=== PATIENT | male | born 1945 | race Caucasian/White ===

== ENCOUNTER 2021-10-30 18:11 | Inpatient (IN) | payer MEDICARE, OTHER ==
[~2021-10-30] VITALS: Ht 170.2 cm; Wt 64.0 kg
[2021-10-30 22:11] LABS: HEMOGLOBIN 10.8 gm/dl (14.0-17.5); RED BLOOD COUNT 3.21 M/UL (4.20-5.50); WHITE BLOOD COUNT 5.8 K/UL (4.5-11.0)
[2021-10-31] MEDS ORDERED: ZYLOPRIM100 MG PO (00:38)
[2021-10-31] MEDS ORDERED: ELIQUIS5 MG PO (00:38)
[2021-10-31] MEDS ORDERED: BACLOFEN10 MG PO (00:39)
[2021-10-31] MEDS ORDERED: LIPITOR40 MG PO (00:39)
[2021-10-31] MEDS ORDERED: TIKOSYN125 MCG PO (00:40)
[2021-10-31] MEDS ORDERED: BUMETANIDE1 MG PO ×2 (00:40→15:04)
[2021-10-31] MEDS ORDERED: VITAMIN D21250 MCG PO (00:41)
[2021-10-31] MEDS ORDERED: FOLIC ACID 1 MG1 MG PO (00:42)
[2021-10-31] MEDS ORDERED: IRON325 M1 PO (00:42)
[2021-10-31] MEDS ORDERED: PROSCAR5 MG PO (00:42)
[2021-10-31] MEDS ORDERED: ISOSORBIDE MONO30 MG PO (00:44)
[2021-10-31] MEDS ORDERED: SYNTHROID75 MCG PO (00:44)
[2021-10-31] MEDS ORDERED: LOPRESSOR50 MG PO (00:45)
[2021-10-31] MEDS ORDERED: ZOFRAN 4 MG TAB4 MG PO (00:46)
[2021-10-31] MEDS ORDERED: NITROSTAT 0.40.4 MG SL (00:46)
[2021-10-31] MEDS ORDERED: TERAZOSIN HCL5 MG PO (00:47)
[2021-10-31 04:13] LABS: HEMOGLOBIN 10.4 gm/dl (14.0-17.5); RED BLOOD COUNT 3.05 M/UL (4.20-5.50); WHITE BLOOD COUNT 5.6 K/UL (4.5-11.0)
[2021-10-31] MEDS ORDERED: CLARITIN10 MG PO (15:02)
[2021-10-31] MEDS ORDERED: PROTONIX20 MG PO (15:06)
[2021-10-31] MEDS ORDERED: DOCUSATE SODIU100 MG PO (15:07)
[2021-11-01 03:20] LABS: HEMOGLOBIN 10.4 gm/dl (14.0-17.5); RED BLOOD COUNT 3.13 M/UL (4.20-5.50); WHITE BLOOD COUNT 6.3 K/UL (4.5-11.0)
--- NOTE | 2021-11-01 13:00 | NUR ---
CALLED DR ZAVALA WITH CONSULT FROM DR RIVAS. POSSIBLE MDS. DR ZAVALA STATED HE WOULD SEE THE PATIENT ON WEDNESDAY.
--- NOTE | 2021-11-01 19:48 | NUR ---
PT REPORTS THAT HE FEELS DIZZY UPON PHYSICIAN VISIT. ORTHOSTATICS BPS DONE. LYING BP148/59 HR77 SITTING BP115/84 HR 84 STANDING BP115/60 HR 80. NOTIFIED MD OF RESULTS ORDERS OBTAINED.
--- NOTE | 2021-11-02 00:37 | NUR ---
NOTIFIED DR ESTEVEZ OF PTS CRITICAL LACTIC ACID.
[2021-11-02 06:00] LABS: HEMOGLOBIN 10.2 gm/dl (14.0-17.5); RED BLOOD COUNT 3.07 M/UL (4.20-5.50); WHITE BLOOD COUNT 6.7 K/UL (4.5-11.0)
[2021-11-02 12:09] LABS: BORDETELLA PARAPERTUSSIS Not Detected (Not Detectd); BORDETELLA PERTUSSIS Not Detected (Not Detectd); CHLAMYDIA PNEUMONIAE Not Detected (Not Detectd); CORONAVIRUS HKU1 Not Detected (Not Detectd); CORONAVIRUS NL63 Not Detected (Not Detectd); CORONAVIRUS OC43 Not Detected (Not Detectd); CORONOAVIRUS 229E Not Detected (Not Detectd); HUMAN METAPNEUMOVIRUS Not Detected (Not Detectd); HUMAN RHINOVIRUS/ENTEROVIRUS Not Detected (Not Detectd); INFLUENZA A Not Detected (Not Detectd); INFLUENZA B Not Detected (Not Detectd); MYCOPLASMA PNEUMONIAE Not Detected (Not Detectd); PARAINFLUENZA VIRUS 1 Not Detected (Not Detectd); PARAINFLUENZA VIRUS 2 Not Detected (Not Detectd); PARAINFLUENZA VIRUS 3 Not Detected (Not Detectd); PARAINFLUENZA VIRUS 4 Not Detected (Not Detectd); RESPIRATORY SYNCYTIAL VIRUS Not Detected (Not Detectd)
[2021-11-02 13:30] LABS: SARS-CoV-2 NOT DETECTED (Not Detectd)
--- NOTE | 2021-11-02 19:45 | NUR ---
PT TAKEN TO CT AND BACK. TOLERATED WELL!!
--- NOTE | 2021-11-02 23:00 | NUR ---
PT NOT ORIENTED AT ALL AT THIS TIME. NOTIFIED DR ESTEVEZ OF PTS CHANGES AND CT ABDOMEN RESULTS. PT INCONTINENT URINE AND BED CHANGED AND PLACED BREIF ON HIM WITH BED ALARM AT THIS TIME.
[2021-11-03 05:29] LABS: HEMOGLOBIN 9.9 gm/dl (14.0-17.5); RED BLOOD COUNT 2.95 M/UL (4.20-5.50); WHITE BLOOD COUNT 6.4 K/UL (4.5-11.0)
--- NOTE | 2021-11-03 11:50 | NUR ---
11/03/21 SPOKE WITH SON SEV DIFFERENT TIMES THUS FAR THIS SHIFT, UPDATED ON PT STATUS CHANGES, ORDERS, CONVERSATION WITH HOSPITALISTS ETC. SON STATES THAT PT HAS EPISODES WHERE HE CAN "HARDLY TALK" AND "WHEN HE DOES, HE IS VERY HOARSE SOUNDING FOR A WHILE" STATED THAT PT SISTER IN LAW WAS HERE LAST DATE AND PT SUPPOSEDLY "HAD A EPISODE LIKE THAT AND HE WASN'T RIGHT AFTER" SON COULDN'T REALLY TELL ME WHAT KIND OF "EPISODE" PATIENT EXPERIENCES. STATES THAT HE IS JUST DIFFERENT FOR A WHILE AFTER HE DOES SUCH. ALSO STATES THAT PT HAS HAD A POOR APPETITE FOR QUITE SOMETIMES, STATES HE "PICKS AND EATS LIKE A BIRD" NOTIFIED SON THAT HERN[facility]NDE[facility] CATH HAD BEEN PLACED AND THAT PT HAD HAD A CT OF HEAD WELL LABS WHICH WERE ALL NOT RESULTED AT THIS TIME. VOICES UNDERSTANDING. STATED THAT HE WOULD LET THE PATIENT'S AND OTHER CHILDREN KNOW WHAT HAS BEEN DONE.
--- NOTE | 2021-11-03 14:41 | NUR ---
11/03/21 DR PENA AND VALE SANDOVAL APRN SPOKE WITH PT FAMILY REGARDING STATUS, BOTH EXPLAINED PLANS OF CARE WITH THEM.
--- NOTE | 2021-11-03 18:14 | NUR ---
11/03/21 1740 SON AND PT SPOUSE AT [facility], STATES THEY WANT TO CHANGE CODE STATUS DNR/DNI AT THIS TIME. DR CUADRA HAS BEEN NOTIFIED OF PT CONTINUED DECLINE WITH CONTINUED FLUCTUATION IN HR AND RHYTHM CHANGES. PT STILL NOT VERBALLY RESPONSIVE, NOT FOLLOWING COMMANDS, FAILED [facility] SWALLOW EVAL PT CANNOT PARTICIPATE WITH EVAL.
--- NOTE | 2021-11-03 19:32 | NUR ---
AT BEDSIDE TO SEE PATIENT. FAMILY ALL IN ROOM.
--- NOTE | 2021-11-03 20:14 | NUR ---
AND FAMILY HAVE DECIDED TO MAKE PATIENT COMFORT MEASURES. NOTIFIED DR ESTEVEZ AND ORDERS PLACED.
[2021-11-05] MEDS ORDERED: TRANSDERM-SCOP1 EACH TOP (08:32)
== END 2021-11-05 14:25 | DRG 280 ==
LOC: PROG CARE 18:11
PROVIDERS: Internal Medicine; ADMIT Internal Medicine
PROC: B24BZZZ Ultrasonography of Heart with Aorta (ICD-10-PCS; principal; 2021-10-31)
DX: I13.0 Hypertensive heart and chronic kidney disease with heart failure and stage 1 through stage 4 chronic kidney disease, or unspecified chronic kidney disease (principal); I21.4 Non-ST elevation (NSTEMI) myocardial infarction; Z20.822 Contact with and (suspected) exposure to COVID-19; Z51.5 Encounter for palliative care; G92.8 Other toxic encephalopathy; J18.9 Pneumonia, unspecified organism; I50.23 Acute on chronic systolic (congestive) heart failure; N39.0 Urinary tract infection, site not specified; N17.9 Acute kidney failure, unspecified; I48.20 Chronic atrial fibrillation, unspecified; D61.818 Other pancytopenia; E87.3 Alkalosis; R64 Cachexia; D69.3 Immune thrombocytopenic purpura; K57.32 Diverticulitis of large intestine without perforation or abscess without bleeding; I25.5 Ischemic cardiomyopathy; K21.9 Gastro-esophageal reflux disease without esophagitis; E03.9 Hypothyroidism, unspecified; I48.0 Paroxysmal atrial fibrillation; E78.5 Hyperlipidemia, unspecified; D63.1 Anemia in chronic kidney disease; M10.9 Gout, unspecified; D50.9 Iron deficiency anemia, unspecified; D46.9 Myelodysplastic syndrome, unspecified; E11.22 Type 2 diabetes mellitus with diabetic chronic kidney disease; N18.32 Chronic kidney disease, stage 3b; I25.10 Atherosclerotic heart disease of native coronary artery without angina pectoris; T42.8X5A Adverse effect of antiparkinsonism drugs and other central muscle-tone depressants, initial encounter; Z79.01 Long term (current) use of anticoagulants; Z95.810 Presence of automatic (implantable) cardiac defibrillator; Z95.5 Presence of coronary angioplasty implant and graft; Z95.2 Presence of prosthetic heart valve; Z95.1 Presence of aortocoronary bypass graft; Z87.891 Personal history of nicotine dependence; Z82.49 Family history of ischemic heart disease and other diseases of the circulatory system; Z90.49 Acquired absence of other specified parts of digestive tract; Z68.20 Body mass index [BMI] 20.0-20.9, adult
CPT/HCPCS: ECHO; 36415; 36600; 70450; 71045; 80048; 80053; 81001; 82140; 82436; 82550; 82553; 82570; 82607; 82746; 82803; 82962; 83540; 83550; 83605; 83615; 83690; 83735; 83880; 84100; 84133; 84156; 84300; 84439; 84443; 84484; 85025; 85610; 85730; 86140; 87633; 92610; 93005; 93306; C9113; J0696; J1644; J1756; J1940; J2060; J2185; J2270; J2310; J2405; P9047; U0002